=== PATIENT | male | born 1965 | race Caucasian/White ===

== ENCOUNTER 2018-01-08 13:36 | Emergency (ER) | END 2018-01-08 19:09 | disposition home or self-care (01) ==

== ENCOUNTER 2018-01-27 15:26 | Emergency (ER) | END 2018-01-27 19:24 | disposition home or self-care (01) ==

== ENCOUNTER 2018-12-22 11:30 | Emergency (ER) | payer MEDICARE, OTHER ==
[~2018-12-22] VITALS: Ht 172.7 cm; Wt 56.1 kg
[~2018-12-22 11:30] MED LIST: DICY10CA40 PO; DIVA-75 PO; ESOM40CA PO; LEVO88TA3 PO; MECL12.574 PO; MELO15TA30 PO; MIRT15TA5 PO; MONT10TA24 PO; OLAN15TA7 PO; ONDA4TAB14 PO; PANT40TA4 PO; RAME8TAB21 PO; RANI300T PO; TRA50 PO
[2018-12-22 11:33] VITALS: BP 119/73; PULSE 107; RESP 18; Ht 172.7 cm; Wt 56.1 kg
--- NOTE | 2018-12-22 12:15 | ERD ---
ER Documentation Chief Complaint Chief Complaint Pt here fot evaluation of LAC to nose. HPI Patient is a 53 years old male past medical history of skin carcinoma that is post skin excision 2 weeks ago presenting to the clinic for evaluation of the wound site. Patient admits to getting skin excision for skin carcinoma on right side of nose. Patient reports sutures came off 1 week ago however admits to occasional bleeding from wound site. Patient denies any pain, erythema, drainage, fever, chills, night sweats. Patient is requesting evaluation of wound site. ROS All systems reviewed and are negative except as per history of present illness. Medications Home Meds Active Scripts Meclizine Hcl* (Antivert*) 12.5 Mg Tab, 25 MG PO Q6H PRN for DIZZINESS, #20 TAB Prov:CHESTER PORTILLO DO 01/27/18 Ondansetron (Ondansetron Odt) 4 Mg Tab.rapdis, 4 MG PO Q6H PRN for NAUSEA AND/OR VOMITING, #10 TAB Prov:LUCIE PANDEY MD 01/08/18 Dicyclomine HCl (Dicyclomine HCl) 10 Mg Capsule, 1 CAP PO TID PRN for abdominal cramping, #20 Prov:LUCIE PANDEY MD 01/08/18 Reported Medications Levothyroxine Sodium* (Levothyroxine Sodium*) 88 Mcg Tablet, 88 MCG PO BEFORE BREAKFAST, #30 TAB 01/08/18 Pantoprazole* (Pantoprazole*) 40 Mg Tablet.dr, 40 MG PO AC BREAKFAST, TAB 01/08/18 Divalproex Sodium* (Depakote ER*) 500 Mg Tabsr, 1000 MG PO BID, #60 TAB.SA 01/08/18 Trazodone Hcl* (Desyrel*) 50 Mg Tablet, 50 MG PO QHS, #30 TAB 01/08/18 Meloxicam* (Mobic*) 15 Mg Tablet, 15 MG PO DAILY, #30 TAB 01/08/18 Olanzapine* (Olanzapine*) 15 Mg Tablet, 15 MG PO DAILY, TAB 01/08/18 Ramelteon (Rozerem) 8 Mg Tablet, 8 MG PO HS, TAB 01/08/18 Esomeprazole Mag Trihydrate (Nexium) 40 Mg Capsule.dr, 40 MG PO DAILY, #30 CAP 01/08/18 Montelukast Sodium* (Montelukast Sodium*) 10 Mg Tablet, 10 MG PO QHS, #30 TAB 01/08/18 Ranitidine Hcl* (Ranitidine Hcl*) 300 Mg Tablet, 300 MG PO HS, #30 TAB 01/08/18 Mirtazapine* (Mirtazapine*) 15 Mg Tablet, 15 MG PO HS, TAB 01/08/18 Allergies Allergies: Coded Allergies: Penicillins (Verified Allergy, Severe, HIVES, 01/08/18) chlorpromazine HCl (Verified Allergy, Severe, HIVES, 01/08/18) erythromycin base (Verified Allergy, Severe, HIVES, 01/08/18) PMhx/Soc Skin Carcinoma post skin excision on 10/2018 History of Surgery: Yes (nose bridge surgery last year) Anesthesia Reaction: No Hx Neurological Disorder: No Hx Respiratory Disorders: No Hx Cardiac Disorders: Yes (valvular d.) Hx Psychiatric Problems: Yes (bipolar,depression) Hx Miscellaneous Medical Probl: No Hx Alcohol Use: No (denied) Hx Substance Use: No Hx Tobacco Use: No (denied) FmHx Family History: No diabetes, No coronary disease, No other Physical Exam Vitals Vital Signs Date Temp Pulse Resp B/P (MAP) Pulse Ox O2 O2 Flow FiO2 Time Delivery Rate 12/22/18 97.8 107 18 119/73 100 11:33 (88) Physical Exam Const: No acute distress Head: Atraumatic Eyes: Normal Conjunctiva ENT: Normal External Ears, Nose and Mouth. Resp: Clear to auscultation bilaterally Cardio: Regular rate and rhythm, no murmurs Skin: No petechiae or rashes Neur: Awake and alert Psych: Normal Mood and Affect Nasal Wound site Exam: Mild blood drainage noted without complications. No erythema, no induration, no pus drainage, no tenderness. Procedures/MDM Patient was seen and evaluated exam post laceration repair without complications. Patient requires no further work-up was advised to follow-up with plastic surgeon for further evaluation. No signs of cellulitis. Dressing application in ED. Patient is stable and ready for discharge. F/u with PCP and Plastic surgeon. No medication required for today's visit. Departure Condition: Stable Patient Instructions: Recognizing Skin Cancer Referrals: LEO COOK (PCP) [facility] YOU HAVE RECEIVED A MEDICAL SCREENING EXAM AND THE RESULTS INDICATE THAT YOU DO NOT HAVE A CONDITION THAT REQUIRES URGENT TREATMENT IN THE EMERGENCY DEPARTMENT. FURTHER EVALUATION AND TREATMENT OF YOUR CONDITION CAN WAIT UNTIL YOU ARE SEEN IN YOUR DOCTORS OFFICE WITHIN THE NEXT 1-2 DAYS. IT IS YOUR RESPONSIBILITY TO MAKE AN APPOINTMENT FOR FOLOW-UP CARE. IF YOU HAVE A PRIMARY DOCTOR --you should call your primary doctor and schedule an appointment IF YOU DO NOT HAVE A PRIMARY DOCTOR YOU CAN CALL OUR PHYSICIAN REFERRAL HOTLINE AT IF YOU CAN NOT AFFORD TO SEE A PHYSICIAN YOU CAN CHOSE FROM THE FOLLOWING [facility] [address] [facility]. [facility] [address] [facility] [address] [facility] [facility] [address] [facility] [facility] [address] [facility] [facility] [address] [facility]. [facility] YOU HAVE RECEIVED A MEDICAL SCREENING EXAM AND THE RESULTS INDICATE THAT YOU DO NOT HAVE A CONDITION THAT REQUIRES URGENT TREATMENT IN THE EMERGENCY DEPARTMENT. FURTHER EVALUATION AND TREATMENT OF YOUR CONDITION CAN WAIT UNTIL YOU ARE SEEN IN YOUR DOCTORS OFFICE WITHIN THE NEXT 1-2 DAYS. IT IS YOUR RESPONSIBILITY TO MAKE AN APPOINTMENT FOR FOLOW-UP CARE. IF YOU HAVE A PRIMARY DOCTOR --you should call your primary doctor and schedule and appointment IF YOU DO NOT HAVE A PRIMARY DOCTOR YOU CAN CALL OUR PHYSICIAN REFERRAL HOTLINE AT . IF YOU CAN NOT AFFORD TO SEE A PHYSICIAN YOU CAN CHOSE FROM THE FOLLOWING [facility]: [facility] [address] [place] [address] [facility] [address] [place] [address] [facility] + [facility] [address] [place] [address] Additional Instructions: Patient was advised to f/u with Plastic surgeon for further evaluation. Patient advised to return to the ED immediately for new or worsening symptoms. Patient advised to follow up with primary care provider in the next 24-48 hours. Patient verbalized understanding and agrees with treatment plan and course of action. If patient has no primary care they may follow up with [facility] + [facility] [address] [place] [id number] or [facility] [address] [place] [address] or [facility] [address] [place] [address] TIAGO CARTER PA-C Dec 22, 2018 12:14
== END 2018-12-22 12:29 | disposition home or self-care (01) ==
LOC: FTE 11:30
DX: L76.22 Postprocedural hemorrhage of skin and subcutaneous tissue following other procedure (principal); Z85.22 Personal history of malignant neoplasm of nasal cavities, middle ear, and accessory sinuses
CPT/HCPCS: 99282